=== PATIENT | female | born 1955 | race Caucasian/White ===

== ENCOUNTER 2024-01-09 10:05 | Outpatient (AMB) | payer MEDICARE, MEDICAID, SELFPAY ==
[2024-01-09 10:32] VITALS: BP 136/70; PULSE 80; O2SAT 98; BMI 37.3
--- NOTE | 2024-01-09 10:32 | MHC.PC.OV ---
Vital Signs 01/09/24 10:32 Height 5 ft 5 in Weight 224 lb BMI 37.3 BP 136/70 Blood Pressure Location Lt brachial Position Sitting Pulse 80 Pulse Source Pulse Oximeter Pulse Oximetry (%) 98 Oxygen Delivery Method Room Air Intake Visit Reasons: Med Follow Up Allergies hydromorphone [Dilaudid] Allergy (Intermediate, Verified 01/09/24 10:37) Lock jur ketamine Allergy (Intermediate, Verified 01/09/24 10:37) Short of breath morphine [Morphine] Allergy (Mild, Verified 01/09/24 10:37) THROAT CLOSING,RASH sulfamethoxazole [From Bactrim] Allergy (Mild, Verified 01/09/24 10:37) HIVES trimethoprim [From Bactrim] Allergy (Mild, Verified 01/09/24 10:37) HIVES celecoxib [Celebrex] Allergy (Unknown, Verified 01/09/24 10:37) swollen eyes rosuvastatin [Crestor] Allergy (Unknown, Verified 01/09/24 10:37) unknown Sulfa (Sulfonamide Antibiotics) Allergy (Unknown, Verified 01/09/24 10:37) unknown clindamycin Adverse Reaction (Verified 01/09/24 10:37) Stomach Upset Anastrozole Allergy (Unknown, Uncoded 01/09/24 10:37) Unknown isovue IV contrast Allergy (Unknown, Uncoded 01/09/24 10:37) anaphylaxis 04/2017 Medication List - Last Reconciled 01/09/24 by Ashtyn Jacob MD cyclobenzaprine 5 mg PO TID PRN gabapentin 100 mg PO BID 90 days gabapentin 800 mg (2 x 400 mg) PO BEDTIME 90 days letrozole 2.5 mg PO DAILY lorazepam 0.5 mg PO BEDTIME 90 days palbociclib (Ibrance) 125 mg PO DAILY sertraline 100 mg PO DAILY simvastatin 5 mg PO DAILY 90 days Tobacco use date assessed: 01/09/24 Fall risk assessment: No Falls in past year Last assessed Fall Risk: 01/09/24 Dental Screening Dental Screen Date: 01/09/24 Did you have a dental visit in the last 12 months?: Yes Did you have a dental problem in the last 6 months where you did not have access to dental care?: No Was dental information given to patient?: Patient has dentist HPI Med Follow Up HPI Details 68-year-old obese female smoker with a history of hypercholesterolemia , metastatic right breast cancer to the bone diagnosed from L5 bone biopsy October 2015. osteoporosis generalized anxiety disorder coming in for follow-up. Last seen in 11/25/2022. Review of the notes had lesion on the lateral lower leg and a shave biopsy done. Patient does have elevated CA 27-29 last zoledronic acid 09/26/2023 not able to receive any antibiotics while on palbociclib can not have any extractions 8 weeks prior or after chemotherapy Zometa. Patient has severe allergy to CT iodine contrast last bone scan 05/28/2023 no progression of new bony lesions. Noted on the blood work with low vitamin B12, folic acid anemia to 10.8 and 33.3 this was in 12/26/2021. Since that time I have not received any other blood test. left leg lesion state good. dental procedure done already. [facility] Medical History (Updated 01/09/24 @ 11:05 by Ashtyn Jacob MD) Lymphedema Left upper extremity deep vein thrombosis Right foot drop Tobacco abuse Anxiety and depression Breast cancer Hypercholesterolemia Surgical History (Updated 07/06/21 @ 13:48 by CESAR Garcia) History of colonoscopy H/O total mastectomy of right breast History of appendectomy History of oophorectomy H/O vaginal hysterectomy History of right hip replacement History of left hip replacement Social History Housing: House Alcohol intake: never Patient Tobacco Use Status: Current everyday Tobacco user Tobacco use type: Cigarette Cigarettes Per Day: 3 e-Cigarette/Vaping Use: Never Used Second Hand Smoke Exposure: No service: No Current occupational status: retired and disabled Cognitive needs: No Hearing needs: No Vision needs: Yes Questionnaire PHQ-9 Over the last 2 weeks, how often have you been bothered by any of the following problems? 1. Little interest or pleasure in doing things: not at all 2. Feeling down, depressed, or hopeless: not at all 3. Trouble falling or staying asleep, or sleeping too much: not at all 4. Feeling tired or having little energy: not at all 5. Poor appetite or overeating: not at all 6. Feeling bad about yourself - or that you are a failure or have let yourself or your family down: not at all 7. Trouble concentrating on things, such as reading the newspaper or watching television: not at all 8. Moving or speaking so slowly that other people could have noticed. Or the opposite - being so fidgety or restless that you have been moving around a lot more than usual: not at all 9. Thoughts that you would be better off or of hurting yourself in some way: not at all Total score: 0 Depression Screening Interpretation: Negative Depression Screening Done: Yes Source: Developed by Drs. Cholo Bowman, Queta Rand, Romel Ellis and colleagues, with an educational judit from [employer]. Thrive Questionnaire Date Thrive assessed: 01/09/24 I am a: Patient What is your living situation today?: I have a steady place to live Within the past 12 months, did the food you bought not last and you didn't have the money to get more?: Never true Within the past 12 months, did you worry whether your food would run out before you got money to buy more?: Never true Do you have trouble paying for medicines?: No Do you have trouble getting transportation to medical appointments?: No Do you have trouble paying your heating and electricity bill?: No Do you have trouble taking care of your child, family member or friend?: No Do you have trouble with day-to-day activities such as bathing, preparing meals, shopping, managing finances, etc.?: No Are you currently unemployed and looking for a job?: No Are you interested in more education?: No Currently or been in a relationship where the following occur: No concerns reported THRIVE Score: 0 AUDIT C Alcohol Use Questionnaire (AUDIT-C) 1. How often do you have a drink containing alcohol?: Never 2. How many drinks containing alcohol do you have on a typical day when you are drinking?: 1 or 2 (0) 3. How often do you have six or more drinks on one occasion?: Never Total Score: 0 Score Reviewed/Action Taken: No TRACY-7 AMB Questionnaire TRACY-7 Date TRACY - 7 assessed: 01/09/24 Feeling nervous, anxious, or on edge: 0 = Not at all Not being able to stop or control worryin = Not at all Worrying too much about different things: 0 = Not at all Trouble relaxin = Not at all Being so restless that it is hard to sit still: 0 = Not at all Becoming easily annoyed or irritable: 0 = Not at all Feeling afraid as if something awful might happen: 0 = Not at all Total TRACY-7 score (0-4 normal; 5-9 mild; 10-14 moderate; 15-21 severe): 0 Source: Developed by Drs. Cholo Bowman, Queta Rand, Romel Ellis and colleagues, with an educational judit from [employer]. Physical exam (Primary Care) Vital Signs: Last Vital Signs Pulse 80 01/09/24 10:32 BP 136/70 01/09/24 10:32 Pulse Ox 98 01/09/24 10:32 Oxygen Delivery Method Room Air 01/09/24 10:32 BMI result Body Mass Index 37.3 Tobacco/Smoking Status: Tobacco use Status Tobacco use date assessed 01/09/24 01/09/24 10:39 Patient Tobacco Use Status Current everyday Tobacco 01/09/24 10:39 Tobacco use type Cigarette 01/09/24 10:39 e-Cigarette/Vaping Use Never Used 01/09/24 10:39 PHQ-9: PHQ-9 Score PHQ-9: Total score 0 01/09/24 10:39 Depression Screening Interpretation: Negative Thrive Assessment: Date of Thrive Assessment Date Thrive assessed 01/09/24 01/09/24 10:39 Currently or been in a relationship where the following occur: No concerns reported Const General: alert; No acute distress Eyes Conjunctivae: conjunctivae normal Resp Auscultation: clear to auscultation bilaterally Cardio Rate: regular rate Rhythm: regular rhythm GI Inspection: Yes normal to inspection Extrem General: Yes normal to inspection and No edema Assessment and Plan Assessment & Plan (1) Breast cancer: Comment: Left lumpectomy radiation 09/07/1986 1016 spine Mets tamoxifen, radiation, Right breast lumpectomy Dr. manzanares August 2012, right breast mastectomy with breast reduction August 2014 Dr. Zamora. Patient has been advised no more mammograms. Code(s): C50.919 - Malignant neoplasm of unspecified site of unspecified female breast Qualifiers: Breast location: unspecified site of breast Estrogen receptor status: unspecified Patient sex: female Laterality: right Qualified Code(s): C50.911 - Malignant neoplasm of unspecified site of right female breast Plan: Patient continue to follow-up with Hematology-Oncology (2) Tobacco abuse: Code(s): Z72.0 - Tobacco use Plan: Patient is strongly advised to stop smoking! (3) Low vitamin B12 level: Code(s): R79.89 - Other specified abnormal findings of blood chemistry Plan: Discussion about replacement (4) High serum folic acid level: Code(s): R79.89 - Other specified abnormal findings of blood chemistry Plan: Discussion about replacement (5) Anemia: Code(s): D64.9 - Anemia, unspecified Plan: Continuing to monitor (6) Generalized anxiety disorder: Comment: has counselling 05/2022 Code(s): F41.1 - Generalized anxiety disorder Plan: Continue with present medication of sertraline and lorazepam (7) Osteoporosis: Code(s): M81.0 - Age-related osteoporosis without current pathological fracture Plan: Discussed about bone density but this is taking care of in [facility] (8) Mixed incontinence: Code(s): N39.46 - Mixed incontinence Plan: Timed voiding meaning every 1-2 hours even if you do not feel like urinating empty the bladder, avoid drinks with high sweet content like juices or caffeine that makes her urinate, 2 hours before you sleep hold liquids so that in the morning you do not get the bladder to be too full. Orders: Orders Complete Blood Count Auto Diff Today E78.00 - Pure hypercholesterolemia, unspecified Thyroid Stimulating Hormone Today E78.00 - Pure hypercholesterolemia, unspecified Vitamin D 25-OH Total Today E78.00 - Pure hypercholesterolemia, unspecified Ferritin Today E78.00 - Pure hypercholesterolemia, unspecified Magnesium Today E78.00 - Pure hypercholesterolemia, unspecified Phosphorus Today E78.00 - Pure hypercholesterolemia, unspecified Comprehensive Met. Panel Today E78.00 - Pure hypercholesterolemia, unspecified Free T4 (Free Thyroxine) Today E78.00 - Pure hypercholesterolemia, unspecified Vitamin B12 and Folate Today E78.00 - Pure hypercholesterolemia, unspecified Lipid Panel Today E78.00 - Pure hypercholesterolemia, unspecified IRON PROFILE Today E78.00 - Pure hypercholesterolemia, unspecified Reticulocyte Count Today E78.00 - Pure hypercholesterolemia, unspecified Medications: Changed From gabapentin 100 mg PO DAILY 90 days 90 caps 2RF To gabapentin 100 mg PO BID 90 days 180 caps 2RF Coding Level of Care Code Est Pt Level 4 (06507) Diagnoses Malignant neoplasm of right female breast, unspecified estrogen receptor status, unspecified site of breast C50.911 Breast location: unspecified site of breast Estrogen receptor status: unspecified Patient sex: female Laterality: right Tobacco abuse Z72.0 Low vitamin B12 level R79.89 High serum folic acid level R79.89 Anemia D64.9 Generalized anxiety disorder F41.1 Osteoporosis M81.0 Mixed incontinence N39.46
== END 2024-01-09 11:13 | disposition home or self-care (01) ==
PROVIDERS: PCP Internal Medicine; Visit Provider Internal Medicine
DX: C50.911 Malignant neoplasm of unspecified site of right female breast (principal); Z72.0 Tobacco use; R79.89 Other specified abnormal findings of blood chemistry; D64.9 Anemia, unspecified; F41.1 Generalized anxiety disorder; M81.0 Age-related osteoporosis without current pathological fracture; N39.46 Mixed incontinence
CPT/HCPCS: 99214

== ENCOUNTER 2024-06-10 09:36 | Outpatient (AMB) | payer MEDICARE, MEDICAID, SELFPAY ==
--- NOTE | 2024-06-10 09:37 | A.OFFPC_ITS ---
Intake Visit Reasons: 3M Follow Up Allergies hydromorphone [Dilaudid] Allergy (Intermediate, Verified 06/10/24 09:37) Lock jur ketamine Allergy (Intermediate, Verified 06/10/24 09:37) Short of breath morphine [Morphine] Allergy (Mild, Verified 06/10/24 09:37) THROAT CLOSING,RASH sulfamethoxazole [From Bactrim] Allergy (Mild, Verified 06/10/24 09:37) HIVES trimethoprim [From Bactrim] Allergy (Mild, Verified 06/10/24 09:37) HIVES celecoxib [Celebrex] Allergy (Unknown, Verified 06/10/24 09:37) swollen eyes rosuvastatin [Crestor] Allergy (Unknown, Verified 06/10/24 09:37) unknown Sulfa (Sulfonamide Antibiotics) Allergy (Unknown, Verified 06/10/24 09:37) unknown clindamycin Adverse Reaction (Verified 06/10/24 09:37) Stomach Upset Anastrozole Allergy (Unknown, Uncoded 06/10/24 09:37) Unknown isovue IV contrast Allergy (Unknown, Uncoded 06/10/24 09:37) anaphylaxis 04/2017 Medication List - Last Reconciled 06/10/24 by Ashtyn Jacob MD cyclobenzaprine 5 mg PO TID PRN gabapentin 800 mg (2 x 400 mg) PO BEDTIME 90 days gabapentin 100 mg PO BID 90 days letrozole 2.5 mg PO DAILY lorazepam 0.5 mg PO BEDTIME 90 days palbociclib (Ibrance) 125 mg PO DAILY sertraline 100 mg PO DAILY simvastatin 5 mg PO DAILY 90 days Tobacco use date assessed: 01/09/24 Fall risk assessment: No Falls in past year Last assessed Fall Risk: 06/10/24 Dental Screening Dental Screen Date: 01/09/24 HPI 3M Follow Up HPI Details 69-year-old female smoker with a history of breast cancer anemia generalized anxiety disorder calling in through Telehealth. Last spoken with was in 01/26/2024. Review of the notes blood work done in February 27 2024 showing anemia of 10.3 and 30.4 with low white count of 3.1 normal platelet count normal blood sugar normal kidney function sodium of 144 calcium of 8.6 normal liver function test LDL of 77 HDL of 56 triglyceride of 132 normal B12 elevated folic acid normal thyroid low vitamin-D normal magnesium normal iron. monitoring an dnoted a lesion on the skull [facility] Medical History (Updated 01/11/24 @ 16:27 by Ashtyn Jacob MD) Lymphedema Left upper extremity deep vein thrombosis Right foot drop Tobacco abuse Anxiety and depression Breast cancer Hypercholesterolemia Surgical History (Updated 07/06/21 @ 13:48 by CESAR Garcia) History of colonoscopy H/O total mastectomy of right breast History of appendectomy History of oophorectomy H/O vaginal hysterectomy History of right hip replacement History of left hip replacement Social History Housing: House Alcohol intake: never Patient Tobacco Use Status: Current everyday Tobacco user Tobacco use type: Cigarette Cigarettes Per Day: 2 e-Cigarette/Vaping Use: Never Used Second Hand Smoke Exposure: No service: No Current occupational status: retired and disabled Cognitive needs: No Hearing needs: No Vision needs: Yes Questionnaire PHQ-9 Over the last 2 weeks, how often have you been bothered by any of the following problems? 1. Little interest or pleasure in doing things: not at all 2. Feeling down, depressed, or hopeless: not at all 3. Trouble falling or staying asleep, or sleeping too much: not at all 4. Feeling tired or having little energy: not at all 5. Poor appetite or overeating: not at all 6. Feeling bad about yourself - or that you are a failure or have let yourself or your family down: not at all 7. Trouble concentrating on things, such as reading the newspaper or watching television: not at all 8. Moving or speaking so slowly that other people could have noticed. Or the opposite - being so fidgety or restless that you have been moving around a lot more than usual: not at all 9. Thoughts that you would be better off or of hurting yourself in some way: not at all Total score: 0 Depression Screening Interpretation: Negative Depression Screening Done: Yes Source: Developed by Drs. Cholo Bowman, Queta Rand, Romel Ellis and colleagues, with an educational judit from [employer]. Thrive Questionnaire Date Thrive assessed: 01/09/24 AUDIT C Alcohol Use Questionnaire (AUDIT-C) 1. How often do you have a drink containing alcohol?: Never 2. How many drinks containing alcohol do you have on a typical day when you are drinking?: 1 or 2 (0) 3. How often do you have six or more drinks on one occasion?: Never Total Score: 0 Score Reviewed/Action Taken: No TRACY-7 AMB Questionnaire TRACY-7 Date TRACY - 7 assessed: 01/09/24 Source: Developed by Drs. Cholo Bowman, Queta Rand, Romel Ellis and colleagues, with an educational judit from [employer]. Physical exam (Primary Care) Tobacco/Smoking Status: Tobacco use Status Tobacco use date assessed 01/09/24 06/10/24 09:38 Patient Tobacco Use Status Current everyday Tobacco 06/10/24 09:38 Tobacco use type Cigarette 06/10/24 09:38 e-Cigarette/Vaping Use Never Used 06/10/24 09:38 PHQ-9: PHQ-9 Score PHQ-9: Total score 0 06/10/24 09:38 Depression Screening Interpretation: Negative Thrive Assessment: Date of Thrive Assessment Date Thrive assessed 01/09/24 06/10/24 09:38 Telehealth Telehealth Location of provider rendering services: practice address Location of patient: address on file Patient Identification confirmed using: Name, : Yes Telehealth method: video ([phone]//[employer]) Patient verbally consented to treatment: Yes Patient verbally consented to billing insurance company: Yes Patient informed of any privacy concerns related to visit: Yes Minutes spent on Phone/Video with Pt.: 25 Coding Level of Care Code Tele Est Pt Level 4 (57515) Diagnoses Malignant neoplasm of right female breast, unspecified estrogen receptor status, unspecified site of breast C50.911 Breast location: unspecified site of breast Estrogen receptor status: unspecified Patient sex: female Laterality: right Tobacco abuse Z72.0 Hypercholesterolemia E78.00 Generalized anxiety disorder F41.1 Assessment & Plan Assessment & Plan (1) Breast cancer: Comment: Left lumpectomy radiation 09/07/1986 1016 spine Mets tamoxifen, radiation, Right breast lumpectomy Dr. manzanares August 2012, right breast mastectomy with breast reduction August 2014 Dr. Zamora. Patient has been advised no more mammograms. Code(s): C50.919 - Malignant neoplasm of unspecified site of unspecified female breast Category: Medical Qualifiers: Breast location: unspecified site of breast Estrogen receptor status: unspecified Patient sex: female Laterality: right Qualified Code(s): C50.911 - Malignant neoplasm of unspecified site of right female breast Plan: Patient continue to follow-up with Hematology-Oncology (2) Tobacco abuse: Code(s): Z72.0 - Tobacco use Category: Medical Plan: Patient is strongly advised to stop smoking! (3) Hypercholesterolemia: Code(s): E78.00 - Pure hypercholesterolemia, unspecified Category: Medical Plan: Avoid fried foods, chicken skin, eggs, butter margarine, pastries and meat. Be it pork or beef they have a lot of cholesterol on simvastatin 5 mg once a day (4) Generalized anxiety disorder: Comment: has counselling 05/2022 Code(s): F41.1 - Generalized anxiety disorder Category: Medical Plan: Continue with present medication sertraline and lorazepam as needed Medications: Refilled gabapentin 100 mg PO BID 90 days 180 caps 2RF lorazepam 0.5 mg PO BEDTIME 90 days 90 tabs 0RF F41.9 - Anxiety disorder, unspecified sertraline 100 mg PO DAILY 90 tabs 0RF F41.9 - Anxiety disorder, unspecified
== END 2024-06-10 11:23 | disposition home or self-care (01) ==
LOC: HO.HMCH 09:36
PROVIDERS: PCP Internal Medicine; Visit Provider Internal Medicine
DX: E78.00 Pure hypercholesterolemia, unspecified (principal); C50.911 Malignant neoplasm of unspecified site of right female breast; Z72.0 Tobacco use; F41.1 Generalized anxiety disorder

== ENCOUNTER 2024-09-09 11:17 | Outpatient (AMB) | payer MEDICARE, MEDICAID, SELFPAY ==
--- NOTE | 2024-09-09 11:17 | A.OFFPC_ITS ---
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 Required: No Molder Shoulder Pad: Not Required per policy Accompanied by: Self / Same As Patient Allergies hydromorphone [Dilaudid] Allergy (Intermediate, Verified 09/09/24 11:18) Lock jur ketamine Allergy (Intermediate, Verified 09/09/24 11:18) Short of breath morphine [Morphine] Allergy (Mild, Verified 09/09/24 11:18) THROAT CLOSING,RASH sulfamethoxazole [From Bactrim] Allergy (Mild, Verified 09/09/24 11:18) HIVES trimethoprim [From Bactrim] Allergy (Mild, Verified 09/09/24 11:18) HIVES celecoxib [Celebrex] Allergy (Unknown, Verified 09/09/24 11:18) swollen eyes rosuvastatin [Crestor] Allergy (Unknown, Verified 09/09/24 11:18) unknown Sulfa (Sulfonamide Antibiotics) Allergy (Unknown, Verified 09/09/24 11:18) unknown clindamycin Adverse Reaction (Verified 09/09/24 11:18) Stomach Upset Anastrozole Allergy (Unknown, Uncoded 09/09/24 11:18) Unknown isovue IV contrast Allergy (Unknown, Uncoded 09/09/24 11:18) anaphylaxis 04/2017 Medication List - Last Reconciled 09/09/24 by Ashtyn Jacob MD cyclobenzaprine 5 mg PO TID PRN gabapentin 800 mg (2 x 400 mg) PO BEDTIME 90 days gabapentin 100 mg PO BID 90 days letrozole 2.5 mg PO DAILY lorazepam 0.5 mg PO BEDTIME 90 days palbociclib (Ibrance) 125 mg PO DAILY sertraline 100 mg PO DAILY simvastatin 5 mg PO DAILY 90 days Tobacco use date assessed: 09/09/24 Fall risk assessment: No Falls in past year Last assessed Fall Risk: 09/09/24 Dental Screening Dental Screen Date: 09/09/24 Did you have a dental visit in the last 12 months?: Yes Did you have a dental problem in the last 6 months where you did not have access to dental care?: No Was dental information given to patient?: Patient has dentist [facility] Medical History (Updated 01/11/24 @ 16:27 by Ashtyn Jacob MD) Lymphedema Left upper extremity deep vein thrombosis Right foot drop Tobacco abuse Anxiety and depression Breast cancer Hypercholesterolemia Surgical History History of colonoscopy H/O total mastectomy of right breast History of appendectomy History of oophorectomy H/O vaginal hysterectomy History of right hip replacement History of left hip replacement Social History (Updated 09/09/24 @ 11:20 by LISBET Ace) Housing: House Alcohol intake: never Patient Tobacco Use Status: Current everyday Tobacco user Tobacco use type: Cigarette Cigarette Packs Per Day: 0.25 Cigarettes Per Day: 3 e-Cigarette/Vaping Use: Never Used Second Hand Smoke Exposure: Yes service: No Current occupational status: retired and disabled Cognitive needs: No Hearing needs: No Vision needs: Yes Questionnaire PHQ-9 Over the last 2 weeks, how often have you been bothered by any of the following problems? 1. Little interest or pleasure in doing things: not at all 2. Feeling down, depressed, or hopeless: not at all 3. Trouble falling or staying asleep, or sleeping too much: not at all 4. Feeling tired or having little energy: not at all 5. Poor appetite or overeating: not at all 6. Feeling bad about yourself - or that you are a failure or have let yourself or your family down: not at all 7. Trouble concentrating on things, such as reading the newspaper or watching television: not at all 8. Moving or speaking so slowly that other people could have noticed. Or the opposite - being so fidgety or restless that you have been moving around a lot more than usual: not at all 9. Thoughts that you would be better off or of hurting yourself in some way: not at all Total score: 0 Depression Screening Interpretation: Negative Depression Screening Done: Yes Source: Developed by Drs. Cholo Bowman, Queta Rand, Romel Ellis and colleagues, with an educational judit from [employer]. Thrive Questionnaire Date Thrive assessed: 09/09/24 I am a: Patient What is your living situation today?: I have a steady place to live Within the past 12 months, did the food you bought not last and you didn't have the money to get more?: Never true Within the past 12 months, did you worry whether your food would run out before you got money to buy more?: Never true Do you have trouble paying for medicines?: No Do you have trouble getting transportation to medical appointments?: No Do you have trouble paying your heating and electricity bill?: No Do you have trouble taking care of your child, family member or friend?: No Do you have trouble with day-to-day activities such as bathing, preparing meals, shopping, managing finances, etc.?: No Are you currently unemployed and looking for a job?: No Are you interested in more education?: No Please select the resources that you would like help with: None Currently or been in a relationship where the following occur: No concerns reported THRIVE Score: 0 AUDIT C Alcohol Use Questionnaire (AUDIT-C) 1. How often do you have a drink containing alcohol?: Never Total Score: 0 TRACY-7 AMB Questionnaire TRACY-7 Date TRACY - 7 assessed: 09/09/24 Feeling nervous, anxious, or on edge: 0 = Not at all Not being able to stop or control worryin = Not at all Worrying too much about different things: 0 = Not at all Trouble relaxin = Not at all Being so restless that it is hard to sit still: 0 = Not at all Becoming easily annoyed or irritable: 0 = Not at all Feeling afraid as if something awful might happen: 0 = Not at all Total TRACY-7 score (0-4 normal; 5-9 mild; 10-14 moderate; 15-21 severe): 0 Source: Developed by Drs. Cholo Bowman, Queta Rand, Romel Ellis and colleagues, with an educational judit from [employer]. Physical exam (Primary Care) Tobacco/Smoking Status: Tobacco use Status Tobacco use date assessed 09/09/24 09/09/24 11:20 Patient Tobacco Use Status Current everyday Tobacco 09/09/24 11:20 Tobacco use type Cigarette 09/09/24 11:20 e-Cigarette/Vaping Use Never Used 09/09/24 11:20 PHQ-9: PHQ-9 Score PHQ-9: Total score 0 09/09/24 11:20 Depression Screening Interpretation: Negative Thrive Assessment: Date of Thrive Assessment Date Thrive assessed 09/09/24 09/09/24 11:20 Currently or been in a relationship where the following occur: No concerns reported Telehealth Telehealth Telehealth Platform: mymxlog Location of provider rendering services: practice address Location of patient: address on file Patient Identification confirmed using: Name, : Yes Telehealth method: video Patient verbally consented to treatment: Yes Patient verbally consented to billing insurance company: Yes Patient informed of any privacy concerns related to visit: Yes Coding Level of Care Code Tele Est Pt Level 4 (21628) Diagnoses Malignant neoplasm of right female breast, unspecified estrogen receptor status, unspecified site of breast C50.911 Breast location: unspecified site of breast Estrogen receptor status: unspecified Patient sex: female Laterality: right Tobacco abuse Z72.0 Hypercholesterolemia E78.00 Assessment & Plan Assessment & Plan (1) Breast cancer: Comment: Left lumpectomy radiation 09/07/1986 1016 spine Mets tamoxifen, radiation, Right breast lumpectomy Dr. manzanares August 2012, right breast mastectomy with breast reduction August 2014 Dr. Zamora. Patient has been advised no more mammograms. Code(s): C50.919 - Malignant neoplasm of unspecified site of unspecified female breast Category: Medical Qualifiers: Breast location: unspecified site of breast Estrogen receptor status: unspecified Patient sex: female Laterality: right Qualified Code(s): C50.911 - Malignant neoplasm of unspecified site of right female breast Plan: gets zometa infusion Q few months (2) Tobacco abuse: Code(s): Z72.0 - Tobacco use Category: Medical Plan: has been doing 1-2 a week and states less (3) Hypercholesterolemia: Code(s): E78.00 - Pure hypercholesterolemia, unspecified Category: Medical Plan History of Present Illness The patient is a 69-year-old female presenting with a need for follow-up regarding her multiple chronic conditions. She is managing osteoporosis with Zometa infusions every two to three months, recent infusion causing increased fatigue. Her anemia and leukopenia, as reported in February 2024, are being managed, though the anemia is reportedly taking a toll on her energy levels. She has a history of breast cancer and is undergoing treatment with letrozole, known to exacerbate her rheumatoid arthritis. This combination of medications may also be contributing to her neuropathy, characterized by numbness and pain in the fingers. Her mood is stabilized with sertraline usage. The patient notes a decreased frequency in smoking, attributing this in part to adverse weather conditions. Despite heightened risks, she maintains social interactions primarily remotely to mitigate infection risks. Her overall concern includes managing current symptoms while actively avoiding additional health complications. Review of Systems - Neurological: Reports numbness in fingers. - Musculoskeletal: Reports exacerbated pain due to rheumatoid arthritis. - General: Reports feeling easily cold. - Respiratory: Denies current issues but has history of smoking. - Psychiatric: Reports stable mood with current medication management. Plan The patient will continue treatment with Zometa infusions every two to three months for her osteoporosis. Current regimens for breast cancer and rheumatoid arthritis, including letrozole, should be maintained with caution due to potential exacerbation of symptoms. Control of neuropathic pain with gabapentin will persist, along with antidepressant therapy using sertraline. Monitoring anemia and leukopenia closely is essential, avoiding exposure to high-risk environments and maintaining telephonic engagements where necessary. Smoking is suggested to be minimized further. Regular evaluations of blood work are recommended to enable proactive management of her condition. Patient was informed and verbally consented to the use of an ambient scribe for clinic note documentation during this visit. Discussion Notes I discussed at length with the patient the nature of her chronic conditions and the management strategies we are employing. The potential side effects of her current treatment plan, including fatigue from Zometa infusions and exacerbation of arthritis from letrozole, were acknowledged. We reviewed the importance of continuing her medications, including gabapentin and sertraline, and the necessity of maintaining avoidance of infections due to her suppressed immune system. She agreed to lifestyle modifications, notably decreased smoking frequency and maintaining remote social contacts. We discussed the need for ongoing monitoring of her anemia and leukopenia with regular follow-ups planned. This patient is well informed about her health status and the importance of compliance with her treatment regimen. Patient Instructions - Continue Zometa infusions as scheduled, and report any severe side effects. - Take prescribed medications, including letrozole, gabapentin, and sertraline, as directed. - Keep avoiding crowded places and practice good hygiene to reduce infection risks. - Maintain remote social interactions, avoiding close contact with sick individuals. - Continue lifestyle modifications including smoking reduction. - Monitor for new symptoms and seek medical help if experiencing severe symptoms. - Stay well-hydrated and maintain a balanced diet rich in colorful fruits and vegetables. - Follow up with regular blood work and medical appointments as scheduled.
--- OUTSIDE RECORDS SUMMARY | 2024-09-09 14:11 | XMS_ITS | Clinical Summary ---
Author Organization [facility] Address [address] [place] [address] Phone Care Team Providers Care Geospatial Developer Name Role Phone Ashtyn Jacob MD Primary Care Provider [phone] Allergies Active Allergy Reactions Criticality Noted Date Comments Anastrozole Rash 07/31/2024 Skin rash after a few days of anastrozole. Celecoxib Swelling,Anaphylax is High 04/01/2021 Cephalexin 04/28/2024 Haloperidol 07/31/2024 Flushing, diaphoresis, hyperventilation Hydromorphone 04/01/2021 Other Reaction(s): shooting pain in jaw and chest Iopamidol Shortness of breath,Hives,Swell ing High 05/03/2017 Other Reaction(s): Difficulty swallowing Ketamine Anaphylaxis High 09/14/2022 Levofloxacin 07/31/2024 Morphine 04/01/2021 Other Reaction(s): shooting pain in jaw and chest Sulfamethoxazole-Trim ethoprim Itching 07/31/2024 Medications acyclovir (ZOVIRAX) 400 mg tablet See Instructions, TAKE 1 TABLET BY MOUTH 2 TIMES A DAY, DRINK PLENTY OF FLUIDS, START TAKING THIS SCRIPT AFTER COMPLETING THREE TIMES A DAY DOSING., # 60 tablet, 2 Refills, Maintenance, 03/03/24 2:26:00 PM EDT, [facility], 170, cm, 02/27/24 10:50:00 EDT, Height, 116.7, kg, 02/27/24 9:41:00 EDT, Dry Weight 4 Active azithromycin (ZITHROMAX) 250 mg tablet 4 Active bisacodyL (Dulcolax, bisacodyl,) 5 mg EC tablet Take 2 tablets (10 mg total) by mouth. 9 Active clindamycin (CLEOCIN) 300 mg capsule 4 Active cyclobenzaprine (FLEXERIL) 5 mg tablet Take 1 tablet (5 mg total) by mouth. 3 Active EPINEPHrine (EpiPen 2-Diony) 0.3 mg/0.3 mL injection Inject 0.3 mL (0.3 mg total) into the thigh. 7 Active gabapentin (NEURONTIN) 400 mg capsule Take 1 capsule (400 mg total) by mouth. Active letrozole (FEMARA) 2.5 mg tablet Take 1 tablet (2.5 mg total) by mouth 3 Active LORazepam (ATIVAN) 0.5 mg tablet 4 Active naproxen (Naprosyn) 500 mg tablet Take 1 tablet (500 mg total) by mouth. 8 Active Ibrance 125 mg capsule Take 1 capsule (125 mg total) by mouth 4 Active prochlorperazin e (COMPAZINE) 5 mg tablet Take 1 tablet (5 mg total) by mouth. 0 Active sertraline (ZOLOFT) 100 mg tablet Take 1 tablet (100 mg total) by mouth. 2 Active simvastatin (ZOCOR) 5 mg tablet Take 1 tablet (5 mg total) by mouth at bedtime. 5 Active triamcinolone acetonide (KENALOG-40) 40 mg/mL injection 1 mL (40 mg total) by Other route. 4 Active Active Problems Problem Noted Date Diagnosed Date Dyspareunia, female 07/31/2024 Carcinoma of breast metastatic to bone 5 Localized swelling of right lower extremity 07/10 Lymphedema of breast 07/31/2024 Open wound 07/31/2024 Severe obesity 07/31/2024 Tobacco dependence syndrome 07/31/2024 Breast cancer 07/05/2012 Encounters Date Type Department Care Team Description 07/31/2024 9:00 AM EST Office Visit Orthopedic Surgery - [address] [place] [address] Maty Cordero PA Bursitis of left shoulder (Primary Dx) from Last 3 Months Immunizations Name Administration Dates Next Due Pneumococcal polysaccharide 23 valent (Pneumovax 23) 2yo and older 07/24/2016 Medical History Medical History Date Comments Breast cancer (CMS/HCC) DX:Breas t cancer (HCC) Hyperlipidemia DX:Hyperlipidemi a Joint pain DX:Joint pain Anxiety state DX:Anxiety state Depressive disorder DX:Depressiv e disorder Social History Tobacco Use Types Packs/Day Years Used Date Smoking Tobacco: Every Day Smokeless Tobacco: Never Alcohol Use Standard Drinks/Week Comments Never 0 (1 standard drink = 0.6 oz pur e alcohol) Comments Unknown Sex and Gender Information Value Date Recorded Sex Assigned at Not on file Legal Sex Female 2:30 AM EST Gender Identity Not on file Sexual Orientation Not on file Obstetrics History Last Filed Vital Signs Vital Sign Reading Time Taken Comments Blood Pressure - - Pulse - - Temperature - - Respiratory Rate - - Oxygen Saturation - - Inhaled Oxygen Concentration - - Weight 89.4 kg (197 lb) 04/28/2024 9:00 AM EDT Height 170.2 cm (5' 7 ) 04/28/2024 9:00 AM EDT Body Mass Index 30.85 04/28/2024 9:00 AM EDT Plan of Treatment Health Maintenance Due Date Last Done Comments Breast Cancer Screening 1955 DTaP,Tdap,and Td Vaccines (1 - Tdap) 1973 Hepatitis A Vaccines (1 of 2 - Risk 2-dose series) 1973 Zoster Vaccines (1 of 2) 1973 RSV Immunization Patients 60 + Years Old (1 - Risk 60-74 years 1-dose series) 2014 Pneumococcal Vaccine: 50+ Ye ars (2 of 2 - PCV) 07/24/2017 07/24/2016 COVID-19 Vaccine (2 - Jansse n risk series) 12/09/2020 11/11/2020 Cholesterol Screening (Lipid Panel) 06/11/2022 Colorectal Cancer Screening: Colonoscopy 06/11/2022 Depression Screening 06/11/2022 Falls Risk Assessment 06/11/2022 Hepatitis C Screening 06/11/2022 Medicare Annual Wellness Visit 06/11/2022 Osteoporosis Screening (Bone Density Screening) 06/11/2022 Social Influencers of Health Screening 06/11/2022 Influenza Vaccine (#1) 2024 HIB Vaccines Aged Out No longer eligi ble based on patient's age to complete this topic HPV Vaccines Aged Out No longer eligi ble based on patient's age to complete this topic Hepatitis B Vaccines Aged Out No long er eligible based on patient's age to complete this topic IPV Vaccines Aged Out No longer eligi ble based on patient's age to complete this topic MMR Vaccines Aged Out No longer eligi ble based on patient's age to complete this topic Meningococcal ACWY Vaccine Aged Out N o longer eligible based on patient's age to complete this topic Meningococcal B Vacine Aged Out No lo nger eligible based on patient's age to complete this topic RSV Immunization Patients Un sagar 20 months Aged Out No longer eligible b ased on patient's age to complete this topic Varicella Vaccines Aged Out No longer eligible based on patient's age to complete this topic Procedures Procedure Name Priority Date/Time Associated Diagnosis Comments TX ARTHROCENTESIS/ASPI RATION/INJECTION MAJOR JOINT/BURSA W/O U/S GUIDANCE Routine 07/31/2024 9:00 AM EST Bursitis of left shoulder from Last 3 Months Results * TX ARTHROCENTESIS/ASPIRATION/INJECTION MAJOR JOINT/BURSA W/O U/S GUIDANCE (07/31/2024 9:00 AM EST) Narrative Maty Cordero PA - 07/31/2024 9:00 AM EST TU Soto ? 07/31/2024 12:31 PM L Inj/Asp: L subacromial bursa Indications: pain Details: 25 G needle, lateral approach Medications: 3 mL lidocaine 1 %; 40 mg triamcinolone acetonide 40 mg/mL Informed Consent: ??Laterality: ??Left ??Relevant images/test results available and reviewed: yes ?Health status cleared: ??Yes ??Procedure/treatment, purpose, treatment alternatives, risks/potential complications and benefits explained: yes ?Patient questions answered: yes ?Patient agrees, verbalizes understanding, and wants to proceed: yes ?Consent given by: ??Patient ??Informed consent discussion completed by Physician/TATYANA with patient: ?? Verbal ??Pre-procedure timeout performed: yes ?? us Maty [facility]/BEDSIDE ORDERABLES Final Result from Last 3 Months Insurance MEDICARE MEDICAID - [place] Care Teams Geospatial Developer Relationship Specialty Start Date End Date Ashtyn Jacob MD [address] [place] [address] [address] [facility] [place] [id number] PCP - General Internal Medicine 03/22/21
== END 2024-09-09 12:15 | disposition home or self-care (01) ==
LOC: HO.HMCH 11:17
PROVIDERS: PCP Internal Medicine; Visit Provider Internal Medicine
DX: C50.911 Malignant neoplasm of unspecified site of right female breast (principal); Z72.0 Tobacco use; E78.00 Pure hypercholesterolemia, unspecified

== ENCOUNTER → 2024-09-09 11:17 | Outpatient (BNVA) | payer MEDICARE, MEDICAID, SELFPAY | PROVIDERS: PCP Internal Medicine; Visit Provider Internal Medicine ==

== ENCOUNTER 2024-12-09 11:31 | Outpatient (AMB) | payer MEDICARE, MEDICAID, SELFPAY ==
--- NOTE | 2024-12-09 11:32 | A.OFFPC_ITS ---
Intake Visit Reasons: 3 month follow up Allergies hydromorphone [Dilaudid] Allergy (Intermediate, Verified 12/09/24 11:32) Lock jur ketamine Allergy (Intermediate, Verified 12/09/24 11:32) Short of breath morphine [Morphine] Allergy (Mild, Verified 12/09/24 11:32) THROAT CLOSING,RASH sulfamethoxazole [From Bactrim] Allergy (Mild, Verified 12/09/24 11:32) HIVES trimethoprim [From Bactrim] Allergy (Mild, Verified 12/09/24 11:32) HIVES celecoxib [Celebrex] Allergy (Unknown, Verified 12/09/24 11:32) swollen eyes rosuvastatin [Crestor] Allergy (Unknown, Verified 12/09/24 11:32) unknown Sulfa (Sulfonamide Antibiotics) Allergy (Unknown, Verified 12/09/24 11:32) unknown clindamycin Adverse Reaction (Verified 12/09/24 11:32) Stomach Upset Anastrozole Allergy (Unknown, Uncoded 12/09/24 11:32) Unknown isovue IV contrast Allergy (Unknown, Uncoded 12/09/24 11:32) anaphylaxis 04/2017 Medication List - Last Reconciled 12/09/24 by Ashtyn Jacob MD acyclovir 400 mg PO DAILY cyclobenzaprine 5 mg PO TID PRN gabapentin 800 mg (2 x 400 mg) PO BEDTIME 90 days gabapentin 100 mg PO BID 90 days lactobacillus combination no.4 (Probiotic) 3,000 mmu cells PO DAILY letrozole 2.5 mg PO DAILY lorazepam 0.5 mg PO BEDTIME 90 days palbociclib (Ibrance) 125 mg PO DAILY sertraline 100 mg PO DAILY simvastatin 5 mg PO DAILY 90 days Tobacco use date assessed: 09/09/24 Fall risk assessment: No Falls in past year Last assessed Fall Risk: 12/09/24 Dental Screening Dental Screen Date: 09/09/24 HPI 3 month follow up HPI Details nuclear scan and zometa infusion - next week , cannot do CT scan due to contrast intolerance [facility] Medical History (Updated 01/11/24 @ 16:27 by Ashtyn Jacob MD) Lymphedema Left upper extremity deep vein thrombosis Right foot drop Tobacco abuse Anxiety and depression Breast cancer Hypercholesterolemia Surgical History History of colonoscopy H/O total mastectomy of right breast History of appendectomy History of oophorectomy H/O vaginal hysterectomy History of right hip replacement History of left hip replacement Social History (Updated 09/09/24 @ 11:20 by LISBET Ace) Housing: House Alcohol intake: never Patient Tobacco Use Status: Current everyday Tobacco user Tobacco use type: Cigarette Cigarette Packs Per Day: 0.25 Cigarettes Per Day: 3 e-Cigarette/Vaping Use: Never Used Second Hand Smoke Exposure: Yes service: No Current occupational status: retired and disabled Cognitive needs: No Hearing needs: No Vision needs: Yes Questionnaire Thrive Questionnaire Date Thrive assessed: 09/09/24 TRACY-7 AMB Questionnaire TRACY-7 Date TRACY - 7 assessed: 09/09/24 Source: Developed by Drs. Cholo Bowman, Queta Rand, Romel Ellis and colleagues, with an educational judit from [employer]. Physical exam (Primary Care) Tobacco/Smoking Status: Tobacco use Status Tobacco use date assessed 09/09/24 12/09/24 11:33 Patient Tobacco Use Status Current everyday Tobacco 12/09/24 11:33 Tobacco use type Cigarette 12/09/24 11:33 e-Cigarette/Vaping Use Never Used 12/09/24 11:33 Thrive Assessment: Date of Thrive Assessment Date Thrive assessed 09/09/24 12/09/24 11:33 Telehealth Telehealth Telehealth Platform: [employer] Location of provider rendering services: practice address Location of patient: address on file Patient Identification confirmed using: Name, : Yes Telehealth method: video Patient verbally consented to treatment: Yes Patient verbally consented to billing insurance company: Yes Patient informed of any privacy concerns related to visit: Yes Coding Level of Care Code Est Pt Level 4 (67058) Diagnoses Malignant neoplasm of right female breast, unspecified estrogen receptor status, unspecified site of breast C50.911 Breast location: unspecified site of breast Estrogen receptor status: unspecified Laterality: right Patient sex: female Tobacco abuse Z72.0 Generalized anxiety disorder F41.1 Assessment & Plan Assessment & Plan (1) Breast cancer: Comment: Left lumpectomy radiation 09/07/1986 1016 spine Mets tamoxifen, radiation, Right breast lumpectomy Dr. manzanares August 2012, right breast mastectomy with breast reduction August 2014 Dr. Zamora. Patient has been advised no more mammograms. Code(s): C50.919 - Malignant neoplasm of unspecified site of unspecified female breast Category: Medical Qualifiers: Breast location: unspecified site of breast Estrogen receptor status: unspecified Laterality: right Patient sex: female Qualified Code(s): C50.911 - Malignant neoplasm of unspecified site of right female breast Plan: Patient continues to follow-up with Hematology-Oncology. (2) Tobacco abuse: Code(s): Z72.0 - Tobacco use Category: Medical Plan: Patient is strongly advised to stop smoking (3) Generalized anxiety disorder: Comment: has counselling 05/2022 Code(s): F41.1 - Generalized anxiety disorder Category: Medical Plan: Continue with present medication as needed Plan History of Present Illness The patient is a 69-year-old female presenting with metastatic breast cancer management and issues related to her current medication regimen. She has experienced continued metastatic involvement primarily affecting skeletal regions, including the hips, spine, ribs, and new involvement of the skull. Initially diagnosed in 1986, the disease's monitoring presents challenges due to asymptomatic bone involvement. Due to her previous adverse reactions, she now undergoes routine nuclear scans instead of CT scans. The patient also reported a history of hypocholesterolemia and mild anemia, alongside chronic smoking and obesity. Her therapy includes Zometa, for which prior blood work such as kidney function assessments is necessary. Continued care includes managing chronic pain via medications like cyclobenzaprine, gabapentin, and letrozole, and addressing anxiety with lorazepam, which is currently due for a refill. The patient uses [id number] probiotics and maintains good responses noted in gastrointestinal function. Smoking cessation has been consistently recommended but remains a lifestyle challenge. Review of Systems - Constitutional: Reports no recent weight change. Reports general well-being. - Musculoskeletal: Reports chronic low back pain and hip discomfort post- surgeries. - Psychiatric: Reports generalized anxiety. Denies any depressive symptoms beyond those associated with current cancer diagnosis. - Hematologic: Reports mild anemia. - Respiratory: Denies issues beyond those related to chronic smoking. - Integumentary: Reports no recent mouth blisters or cold sores with acyclovir use. - Gastrointestinal: Reports gastrointestinal improvements with current probiotic use. Plan We will continue to monitor metastatic breast cancer progression, acknowledging the recent rise in tumor markers and potential need for treatment adjustment. I have emphasized the importance of maintaining current Zometa infusions and obtaining necessary nuclear scans, given previous intolerance to CT contrast dyes. The patient's management includes prescriptions for medications necessary for her anxiety and pain management, with a regular refill for lorazepam being processed. Lifestyle modifications, specifically smoking cessation, remain advised. Patient was informed and verbally consented to the use of an ambient scribe for clinic note documentation during this visit. Discussion Notes During our discussion, I advised continuing the current treatment strategies for metastatic breast cancer, particularly the effectiveness and role of Zometa. We discussed the management of mild anemia and hypercholesterolemia, alongside chronic low back pain, using current medications. The patient consented to the proposed plan of maintaining nuclear scans and blood work required for monitor ing kidney function. We have discussed and arranged for a lorazepam refill to address anxiety management needs, emphasizing the importance of medication compliance. Encouragement to stop smoking and consider lifestyle modifications were provided, enhancing her overall health status. Patient Instructions - Continue all prescribed medications as instructed, and refill lorazepam. - Attend all scheduled appointments with hematology-oncology and for nuclear scans. - Maintain calcium and vitamin D intake as previously advised. - Contact our office if any new symptoms develop. - Continue avoiding CT scans with contrast, and report any related adverse events if applicable. - Work on smoking cessation and monitor weight management. - Ensure hydration and consider dietary strategies to support overall health. - Report any changes in symptoms or new symptoms, such as increased pain or respiratory issues. Medications: Refilled lorazepam 0.5 mg PO BEDTIME 90 tabs 0RF 90 days F41.9 - Anxiety disorder, unspecified
== END 2024-12-09 12:36 | disposition home or self-care (01) ==
LOC: HO.HMCH 11:31
PROVIDERS: PCP Internal Medicine; Visit Provider Internal Medicine
DX: C50.911 Malignant neoplasm of unspecified site of right female breast (principal); Z72.0 Tobacco use; F41.1 Generalized anxiety disorder

== ENCOUNTER → 2024-12-09 11:31 | Outpatient (BNVA) | payer MEDICARE, MEDICAID, SELFPAY | PROVIDERS: PCP Internal Medicine; Visit Provider Internal Medicine | DX: C50.911 Malignant neoplasm of unspecified site of right female breast (principal); F41.1 Generalized anxiety disorder; Z72.0 Tobacco use | CPT/HCPCS: 99212 ==

== ENCOUNTER 2025-03-11 11:41 | Outpatient (AMB) | payer MEDICARE, MEDICAID, SELFPAY ==
--- NOTE | 2025-03-11 11:42 | MHC.PC.OV ---
Intake Visit Reasons: 3M Follow Up Allergies hydromorphone (Dilaudid) Allergy (Intermediate, Verified 03/11/25 11:43) Lock jur ketamine Allergy (Intermediate, Verified 03/11/25 11:43) Short of breath morphine (Morphine) Allergy (Mild, Verified 03/11/25 11:43) THROAT CLOSING,RASH sulfamethoxazole (From Bactrim) Allergy (Mild, Verified 03/11/25 11:43) HIVES trimethoprim (From Bactrim) Allergy (Mild, Verified 03/11/25 11:43) HIVES celecoxib (Celebrex) Allergy (Unknown, Verified 03/11/25 11:43) swollen eyes rosuvastatin (Crestor) Allergy (Unknown, Verified 03/11/25 11:43) unknown Sulfa (Sulfonamide Antibiotics) Allergy (Unknown, Verified 03/11/25 11:43) unknown clindamycin Adverse Reaction (Verified 03/11/25 11:43) Stomach Upset Anastrozole Allergy (Unknown, Uncoded 03/11/25 11:43) Unknown isovue IV contrast Allergy (Unknown, Uncoded 03/11/25 11:43) anaphylaxis 04/2017 Medication List - Last Reconciled 03/11/25 by Ashtyn Jacob MD acyclovir 400 mg PO DAILY cyclobenzaprine 5 mg PO TID PRN gabapentin 800 mg (2 x 400 mg) PO BEDTIME 90 days gabapentin 100 mg PO BID 90 days lactobacillus combination no.4 (Probiotic) 3,000 mmu cells PO DAILY letrozole 2.5 mg PO DAILY lorazepam 0.5 mg PO BEDTIME 90 days palbociclib (Ibrance) 125 mg PO DAILY sertraline 100 mg PO DAILY simvastatin 5 mg PO DAILY 90 days Tobacco use date assessed: 03/11/25 Fall risk assessment: No Falls in past year Last assessed Fall Risk: 03/11/25 Dental Screening Dental Screen Date: 09/09/24 [facility] Medical History (Updated 01/11/24 @ 16:27 by Ashtyn Jacob MD) Lymphedema Left upper extremity deep vein thrombosis Right foot drop Tobacco abuse Anxiety and depression Breast cancer Hypercholesterolemia Surgical History History of colonoscopy H/O total mastectomy of right breast History of appendectomy History of oophorectomy H/O vaginal hysterectomy History of right hip replacement History of left hip replacement Social History (Updated 09/09/24 @ 11:20 by LISBET Ace) Housing: House Alcohol intake: never Patient Tobacco Use Status: Current everyday Tobacco user Tobacco use type: Cigarette Cigarette Packs Per Day: 0.25 Cigarettes Per Day: 3 e-Cigarette/Vaping Use: Never Used Second Hand Smoke Exposure: Yes service: No Current occupational status: retired and disabled Cognitive needs: No Hearing needs: No Vision needs: Yes Questionnaire PHQ-9 Over the last 2 weeks, how often have you been bothered by any of the following problems? 1. Little interest or pleasure in doing things: not at all 2. Feeling down, depressed, or hopeless: not at all 3. Trouble falling or staying asleep, or sleeping too much: not at all 4. Feeling tired or having little energy: not at all 5. Poor appetite or overeating: not at all 6. Feeling bad about yourself - or that you are a failure or have let yourself or your family down: not at all 7. Trouble concentrating on things, such as reading the newspaper or watching television: not at all 8. Moving or speaking so slowly that other people could have noticed. Or the opposite - being so fidgety or restless that you have been moving around a lot more than usual: not at all 9. Thoughts that you would be better off or of hurting yourself in some way: not at all Total score: 0 Depression Screening Interpretation: Negative Depression Screening Done: Yes Source: Developed by Drs. Cholo Bowman, Romel Harris and colleagues, with an educational judit from [facility]. Thrive Questionnaire Date Thrive assessed: 09/09/24 TRACY-7 AMB Questionnaire TRACY-7 Date TRACY - 7 assessed: 09/09/24 Source: Developed by Drs. Cholo Bowman, Romel Harris and colleagues, with an educational judit from [facility]. Physical exam (Primary Care) Tobacco/Smoking Status: Tobacco use Status Tobacco use date assessed 03/11/25 03/11/25 11:44 Patient Tobacco Use Status Current everyday Tobacco 03/11/25 11:42 Tobacco use type Cigarette 03/11/25 11:42 e-Cigarette/Vaping Use Never Used 03/11/25 11:42 PHQ-9: PHQ-9 Score PHQ-9: Total score 0 03/11/25 15:20 Depression Screening Interpretation: Negative Thrive Assessment: Date of Thrive Assessment Date Thrive assessed 09/09/24 03/11/25 11:42 Telehealth Telehealth Telehealth Platform: [employer] Location of provider rendering services: practice address Location of patient: address on file Patient Identification confirmed using: Name, : Yes Telehealth method: video Patient verbally consented to treatment: Yes Patient verbally consented to billing insurance company: Yes Patient informed of any privacy concerns related to visit: Yes Minutes spent on Phone/Video with Pt.: 25 Coding Level of Care Code Tele Est Pt Level 4 (92325) Diagnoses Malignant neoplasm of right female breast, unspecified estrogen receptor status, unspecified site of breast C50.911 Breast location: unspecified site of breast Estrogen receptor status: unspecified Laterality: right Patient sex: female Tobacco abuse Z72.0 Generalized anxiety disorder F41.1 Assessment & Plan Assessment & Plan (1) Breast cancer: Comment: Left lumpectomy radiation 09/07/1986 1016 spine Mets tamoxifen, radiation, Right breast lumpectomy Dr. manzanares August 2012, right breast mastectomy with breast reduction August 2014 Dr. Zamora. Patient has been advised no more mammograms. Code(s): C50.919 - Malignant neoplasm of unspecified site of unspecified female breast Category: Medical Qualifiers: Breast location: unspecified site of breast Estrogen receptor status: unspecified Laterality: right Patient sex: female Qualified Code(s): C50.911 - Malignant neoplasm of unspecified site of right female breast Plan: Continue to follow-up with [facility] cancer center. With the increase in pain patient has been prescribed the OxyContin and oxycodone. (2) Tobacco abuse: Code(s): Z72.0 - Tobacco use Category: Medical Plan: Patient is strongly advised to stop smoking (3) Generalized anxiety disorder: Comment: has counselling 05/2022 Code(s): F41.1 - Generalized anxiety disorder Category: Medical Plan: Continue with present medication. Patient has been having counseling and therapy Plan History of Present Illness The patient is a 69-year-old female presenting with metastatic breast cancer. The breast cancer was initially diagnosed in 1986 and has since metastasized, as confirmed by an L5 bone biopsy. The patient is currently undergoing treatment at a cancer center and is on medications including Letrozole and Ibrance. The patient reports that Letrozole exacerbates her osteoarthritis, leading to increased joint pain. She is also taking Gabapentin for pain management, with a dosage of 400 mg at night and 100 mg during the day to avoid drowsiness. Recently, Oxycodone has been prescribed for pain management, including both short-acting and long-acting formulations. The patient has a history of hypercholesterolemia and generalized anxiety disorder. She is a smoker and has been strongly advised to quit smoking due to its health implications. The patient has been experiencing significant emotional distress, including depression, exacerbated by the loss of her . She has been referred to a counselor, which she finds helpful in managing her emotional well-being. Review of Systems - Musculoskeletal: Reports increased joint pain due to osteoarthritis. - Neurological: Reports depression and emotional distress. - Psychiatric: Reports generalized anxiety disorder. Plan Patient was informed and verbally consented to the use of an ambient scribe for clinic note documentation during this visit. 1. Metastatic Breast Cancer The patient will continue treatment at the cancer center, including Letrozole and Ibrance. Regular follow-ups and scans are scheduled to monitor the progression of the disease. 2. Osteoarthritis The patient is advised to continue Gabapentin for pain management, with Oxycodone prescribed for more severe pain episodes. 3. Hypercholesterolemia The patient should maintain regular monitoring of cholesterol levels and adhere to prescribed lipid-lowering therapy. 4. Generalized Anxiety Disorder The patient is encouraged to continue counseling sessions to manage anxiety and emotional distress. 5. Nicotine Dependence The patient is strongly advised to cease smoking to improve overall health outcomes. Discussion Notes During the consultation, we discussed the continuation of current cancer treatments and the importance of regular follow-ups to monitor disease progression. The patient was advised on managing osteoarthritis pain with Gabapentin and Oxycodone as needed. We emphasized the need for smoking cessation and continued counseling for anxiety management. Patient Instructions - Continue current cancer treatment regimen and attend all scheduled follow-ups. - Take Gabapentin and Oxycodone as prescribed for pain management. - Quit smoking to improve health outcomes. - Continue counseling sessions to manage anxiety and emotional distress.
== END 2025-03-11 15:45 | disposition home or self-care (01) ==
LOC: HO.HMCH 11:41
PROVIDERS: PCP Internal Medicine; Visit Provider Internal Medicine
DX: C50.911 Malignant neoplasm of unspecified site of right female breast (principal); Z72.0 Tobacco use; F41.1 Generalized anxiety disorder